=== PATIENT | female | born 1985 ===

== ENCOUNTER 2018-08-06 09:50 | Day surgery (SDC) | payer OTHER ==
[2018-08-03 13:56] VITALS: BMI 28.7
[2018-08-06] MEDS ORDERED: Propofol 10 mg/ml Inj (20 ML) ONE (17:09)
[2018-08-06] MEDS ORDERED: Midazolam 2 MG/2 ML VIAL ONE (17:09)
[2018-08-06] MEDS ORDERED: Rocuronium 10 mg/ml (5 ml) ONE ×2 (17:16→17:24)
[2018-08-06] MEDS ORDERED: ceFAZolin 1 gm in NS 2 GM/200 ML BAG IVPB ONE (17:16)
[2018-08-06] MEDS ORDERED: HYDROmorphone 0.5 mg/0.5 ml ISec IVP PRN (18:08)
[2018-08-06] MEDS ORDERED: MethylPREDNISolone Depo 40 mg/ml Inj ONE (18:44)
[2018-08-06] MEDS ORDERED: Lidocaine 2% MPF (5 ml) Inj ONE (18:44)
[2018-08-06] MEDS ORDERED: Bupivacaine HCl 0.5% PF (10 ml) Inj ONE (18:45)
[2018-08-06] MEDS ORDERED: Bupivacaine 0.25% 20 ML INJ IJ ONE (18:45)
[2018-08-06] MEDS ORDERED: Lactated Ringer's 500 ML IV ONE (21:30)
[2018-08-06 21:53] VITALS: PULSE 97; RESP 18; TEMP 98.7
[2018-08-06 23:06] VITALS: BP 111/71; O2SAT 98
--- NOTE | 2018-08-08 06:57 | PCM.SURG1 ---
Surgeon's Initial Post Op Note - Surgeon's Notes Surgeon: Katrina Ventura MD Grip Wrapper: Rojelio Baker PA-C Type of Anesthesia: General Endo Pre-Operative Diagnosis: Left Wrist: #1 TFCC complex tear, peripheral tear. #2 ECU tenosynovitis. #3 scapholunate ligament partial tear (stable). #4 Synovitis. #5 DISI, possible unstable lunate Operative Findings: Left Wrist: #1 TFCC complex tear, not repairable. #2 ECU tenosynovitis. #3 scapholunate ligament partial tear (stable). #4 Extensive Synovitis throughout entire radio-carpal and ulno-carpal joints. 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 #6 stable DISI/Lunate Post-Operative Diagnosis: Left Wrist: #1 TFCC complex tear, not repairable. #2 ECU tenosynovitis. #3 scapholunate ligament partial tear (stable). #4 Extensive Synovitis throughout entire radio-carpal and ulno-carpal joints. 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 #6 stable DISI/Lunate Operation Performed: Left Wrist Arthroscopic: #1 TFCC tear debridement. #2 extensive synovectomy radial and ulnar compartments. #3 chondroplasty distal ulna, lunate, and scaphoid articular surfaces. #4 SL partial tear evaluation under anesthesia and flouro. #5 SL partial tear debridement. #6 evaluation of Lunate stability and DISI findings seen on MRI. #7 ECU injection with cortisone mixture. #8 intra-articular PRP injection. #9 placement in long arm splint Specimen/Specimens Removed: specimen= none. complications= none. Implants= none. tourniquet time= 0min Estimated Blood Loss: EBL {In ML}: 3 Blood Products Given: N/A Drains Used: No Drains Post-Op Condition: Good Date of Surgery/Procedure: 08/06/18 Time of Surgery/Procedure: 19:00
--- NOTE | 2018-08-25 19:07 | OP ---
PROCEDURE DATE: 08/06/2018 PREOPERATIVE DIAGNOSES: Left wrist: 1. Triangular fibrocartilage complex tear/peripheral tear. 2. Extensor carpi ulnaris tenosynovitis. 3. Scapholunate ligament partial tear (stable). 4. Synovitis. 5. Dorsal intercalated segmental instability, possible unstable lunate. POSTOPERATIVE DIAGNOSES: Left wrist: 1. Triangular fibrocartilage complex tear/not repairable. 2. Extensor carpi ulnaris tenosynovitis. 3. Scapholunate ligament partial tear (stable). 4. Extensive synovitis throughout entire radiocarpal and ulnocarpal joints. 5. Focal areas of grade 2 chondromalacia with interspersed smaller focal areas of grade 4 chondromalacia of the distal ulnar, lunate, scaphoid. 6. Stable dorsal intercalated segmental instability and lunate. PROCEDURES: Left wrist arthroscopic: 1. Triangular fibrocartilage complex tear debridement. 2. Extensive synovectomy radial and ulnar compartments. 3. Chondroplasty lunate and scaphoid. 4. Chondroplasty and microfracture of the distal ulnar articular surface. 5. Scapholunate partial tear evaluation under anesthesia and fluoroscopy. 6. Scapholunate ligament partial tear debridement. 7. Evaluation of lunate stability and dorsal intercalated segmental instability findings seen on MRI. 8. Extensive carpi ulnaris injection with cortisone mixture. 9. Intraarticular PRP injection. 10. Placement in long arm splint. SURGEON: Katrina Ventura MD SAFETY AND HEALTH CONSULTANT: Rojelio Cordoba PA-C JUSTIFICATION FOR SAFETY AND HEALTH CONSULTANT: Rojelio Cordoba PA-C is a certified physician promotions assistant whose skilled surgical services were an absolute necessity for successful completion of the procedure as he provided skilled surgical assistance with positioning of the patient, positioning of extremity, management of surgical field, retraction of neurovascular structures, knowing about arthroscopic equipment and facilitating and handling of distraction ____, facilitating TFCC debridement, as well as extensive synovectomy, scapholunate ligament debridement, chondroplasty and micro fracture, wound closure, placement in long arm splint. Rojelio Cordoba was present for the entire case and was an absolute necessity for successful completion of the procedure. ANESTHESIA: General endotracheal anesthesia. SPECIMENS: None. COMPLICATIONS: None. IMPLANTS: None. TOURNIQUET TIME: Zero minutes. DRAINS: None. ESTIMATED BLOOD LOSS: 3 mL. DISPOSITION: The patient was extubated and transferred to PACU in stable condition. POSTOPERATIVE EVALUATION: I personally examined the patient in PACU, she was neurovascularly intact after the procedure with 2+ radial artery and ulnar artery pulse, brisk capillary refill all fingers, sensory intact on radial and ulnar aspects of all fingers, 5/5 motor strength all fingers, at all joints, flexion and extension as well as abduction and adduction. INDICATIONS FOR SURGERY: The patient is a 32-year-old female, right hand dominant, with no significant past medical history, who presents to the office for the first time under my care 07/21/2017 with right much worse than left wrist pain. Right wrist was treated conservatively including multiple cortisone injections and serial casting, followed by immobilization in a custom molded brace with a diagnosis of TFCC tear, tenosynovitis, partial scapholunate tear. Conservative treatment for the right wrist proved to be successful. Left wrist pain progressively worsened and underwent conservative treatment starting on 11/07/2017. She underwent left wrist cortisone mixture injection targeted towards the extensor carpi ulnaris tendon as well as the TFCC with complete resolution of pain and she regained full function and range of motion in the immediate time point after the injection. She was initially placed and immobilized in a short arm cast for four weeks as well. Initial MRI left wrist done at [facility] on 10/28/2017 was read as, 1. Moderate extensive carpi ulnaris tendonitis and tenosynovitis with surrounding soft tissue swelling. 2. Moderate to large tear of the peripheral TFCC. No central TFCC tear. 3. Intermediate grade partial thickness tear of scapholunate ligament without widening of the scapholunate interval. 4. Mild dorsal tilt to the lunate which may reflect early dorsal intercalated segmental instability (DISI). She underwent conservative treatment to the left wrist including immobilization for over four months in short arm cast followed by custom molded brace and cortisone mixture injections twice with no overall significant improvement and significant dysfunction and pain. She stated that the pain was a significant negative impact on her quality of life and was interfering with ADLs as well as her occupation at [employer]. Finally after six months of failing conservative treatment and increasing pain, she underwent a repeat MRI at [facility] on 07/18/2018 which is read as, 1. Re-demonstration of moderate extensive carpi ulnaris tendonitis and tenosynovitis with surrounding soft tissue swelling and edema. Low grade tear of the ECU tendon. No change. 2. Re-demonstration of moderate to large tear of the peripheral TFCC. No central TFCC tear. 3. Intermediate grade partial thickness tear of the scapholunate ligament without widening of the scapholunate interval. 4. Slight dorsal tilt to the lunate is again seen, which may reflect early dorsal intercalated segmental instability (DISI) After review of the repeat MRI with no clinical improvement over an 8-month conservative treatment window which included the immobilization and multiple injections, physical therapy multiple rounds, antiinflammatory medications/Mobic, antiinflammatory compound cream and home exercise program. After failing all conservative treatment she was indicated for left wrist arthroscopic TFCC debridement versus repair, synovectomy, evaluation of scapholunate ligament under anesthesia and debridement, evaluation of lunate stability and dorsal intercalated segmental instability under anesthesia, and all related indicated arthroscopic procedure as well as cortisone mixture injection targeted towards the extensor carpi ulnaris tendon. The risks, benefits, and alternatives to the procedure were discussed at length with the patient with the risks including, but not limited to infection, neurovascular damage, loss of function, development of blood clots including DVT and PE, loss of limb, inability to return to preinjury level of activity, and occupation, need for further surgery, development of chronic pain and disability, anesthesia reactions including . After answering all of her questions, she stated that she understood the risks and wished to proceed with surgery. She watched surgical animation videos and diagnosis animation videos and stated that she had a good understanding of the surgery as well as the multiple diagnoses. She was referred to her primary care physician Dr. Dionna Sanon for PATs and preoperative medical evaluations and clearance and the procedure was scheduled at [facility] on 08/06/2018. PROCEDURE IN DETAIL: The patient was identified in the preoperative holding area, and the left wrist was marked for surgery. Once again as described above, the risks, benefits, and alternatives of the procedure were discussed at length with the patient, and informed consent was obtained. After a brief discussion with the anesthesia staff, the patient was taken to the operating room and placed on the well-padded operating room table with all bony prominences and superficial neurovascular structures well padded. Initial time-out was done with the surgeon, anesthesia staff, OR staff, all in agreement with the patient, the procedure being done, and the extremity being operated on. Perioperative IV antibiotics were administered. General anesthesia was administered without difficulty or complication. Examination under anesthesia was then carried out. EXAMINATION UNDER ANESTHESIA: Left wrist with no swelling, no warmth,no erythema, skin intact, no significant instability noted, with the use of fluoroscopic imaging stress exam to the scapholunate interval as well as the lunate was carried out with no evidence of increased lunate instability or scapholunate widening compared to contralateral wrist. Full range of motion obtained. CONTINUATION OF PROCEDURE: The left upper extremity was prepped and draped in a standard sterile fashion after a tourniquet was placed high on the left thigh, but never inflated. The distraction tower from [employer] was assembled and with the finger traps in position, the left wrist was distracted successfully with a total distraction time of 60 minutes and distraction force of 20 pounds. The 3/4 portal was created with a slim through the skin and spread and blunt dissection down to the level of the capsule just distal to Marissa's tubercle. A #18 gauge spinal needle was inserted into the radiocarpal joint and insufflation with 20 mL of normal saline was carried out intraarticular. The blunt arthroscopic trocar and cannula were then inserted into the radiocarpal joint and with the use of spinal needle localization, optimal entry point for the 6R portal was identified and the 6R protal was created with stab incision slim and spread technique with blunt dissection level of capsule. Arthroscopic probe was then placed and a diagnostic arthroscopy was then carried out. With the use of arthroscopic probe the diagnostic arthroscopy was carried out focusing on the ulnocarpal joint first. Attention was first turned towards TFCC and indeed there was a complex tear comprising the entire periphery of the TFCC extending into the central region. The underlying distal ulnar cartilage was damaged, exhibiting grade 2 chondromalacia in the periphery with a central region of grade 4 chondromalacia with full thickness cartilage loss. The quality of the TFCC tissue was not amenable to repair with complex tearing and poor quality tissue present. Throughout the periphery of the ulnocarpal joint, there was significant inflamed hypertropic synovitis throughout, representing a significant pain generator. Attention was then turned towards the mid point at the distal radioulnar joint and the overlying scapholunate ligament which exhibited partial tearing. Both the chondral surface of the scaphoid and lunate exhibited grade 2 chondromalacia with some fibrillation and unstable cartilage fragments. No full thickness defect was seen. Attention was then turned towards to the radiocarpal joints where in the periphery of the radiocarpal joint, there was significant hypertropic inflamed synovitis, also representing a significant pain generator for the patient. With the use of arthroscopic shaver and radiofrequency ablation, an extensive synovectomy was carried out while maintaining good hemostasis. This was done beyond what is considered usual and customary for better visualization during wrist arthroscopy. Indeed there was global hypertropic and inflamed synovial lining representing a significant pain generator for the patient that underwent an extensive synovectomy, requiring extended surgical time beyond what is considered usual and customary for a synovectomy performed during wrist arthroscopies. Once good hemostasis was achieved and extensive synovectomy was completed, attention was then turned towards the scapholunate ligaments. As stated before, there was no significant scapholunate instability seen under anesthesia and fluoroscopic guidance as well as no widening of the scapholunate interval. With the use of radiofrequency ablation an arthroscopic shaver debridement of the partial scapholunate tear was carried out. Attention was then turned towards the ulnocarpal joint. Again the TFCC was carefully evaluated and indeed it was of poor quality tissue not` amenable to repair. With the use of arthroscopic shaver, radiofrequency ablation, meniscal biters, the TFCC was debrided and all unstable fragments were removed, establishing a stable smooth rim of TFCC cartilage tissue that would not cause the same impingement at the radiocarpal joint. The surrounding synovial inflammation was also debrided with completion of the extensive synovectomy. Once good hematosis was achieved again, attention was then turned towards the articular surface of the distal ulnar. CHONDROPLASTY AND MICROFRACTURE DISTAL ULNAR: With the use of arthroscopic shaver and radiofrequency ablation of chondroplasty of the distal ulnar articular surface was carried out establishing a smooth contour. The central aspect with a small 2 mm x 2 mm region of full thickness chondral loss was carefully evaluated and with the use of microfracture os, a small microfracture hole was placed with good bloody return established and successful microfracture carried out. Once all intraarticular treatment and work was done, we then proceeded with the PRP injection. ARTHROSCOPIC-ASSISTED INTRAARTICULAR PRP INJECTION: With the help of anesthesia staff, 10 mL of PRP were obtained after a peripheral venous stick. The venous blood was spun in the [employer] centrifuge, yielding 10 mL of PRP. The PRP in its eternity was injected intraarticular under direct arthroscopic visualization. Arthroscopic camera was then removed and the arthroscopic portals were reapproximated with three plain 0 Vicryl suture for deep tissue, followed by three plain 0 Monocryl suture for skin. The extensor carpi ulnaris tendon was then identified and a cortisone mixer consisting of 3 mL total, 1 mL 40 mg Depo-Medrol, 1 mL of 0.5% Marcaine without epinephrine preservative free, 1 mL of 2% lidocaine without epinephrine preservative free were injected in its entirety along the ECU tendon to provide antiinflammatory treatment and pain relief. Once the injection was completed, sterile dressings were applied followed by a layer of sterile cast padding from the metacarpal heads up to the proximal arm. A sugar- tong splint/long arm splint was then placed up to the metacarpal heads from the elbow. Once the splint hardened and the compressive MANDA wrap was in position, the patient was then extubated and transferred to PACU in stable condition and tolerated the procedure well. DISPOSITION: The patient will be discharged home once she is recovered from anesthesia. She was given a prescription for Percocet for pain control. She was instructed to keep the left upper extremity nonweightbearing and exhibit good splint/cast care. She was instructed to keep the dressings and the splint clean, dry, and intact until she follows up in the office in one week at [facility] and already has a postoperative appointment set up. She will contact me directly with any questions or concerns. Katrina Ventura MD
== END 2018-08-06 22:50 | disposition home or self-care (01) ==
LOC: C.SDS 09:50
PROVIDERS: ATTEND Student in an Organized Health Care Education/Training Program
DX: S63.522A Sprain of radiocarpal joint of left wrist, initial encounter (principal); S63.512A Sprain of carpal joint of left wrist, initial encounter; M67.232 Synovial hypertrophy, not elsewhere classified, left forearm; M65.9 Synovitis and tenosynovitis, unspecified
CPT/HCPCS: 25447; 29846; J0171; J0690; J1170; J2250; J2704; J2765; J3010; J7120